=== PATIENT | female | born 1955 | race Caucasian/White ===

== ENCOUNTER → 2016-11-08 | Outpatient (CLI) | payer OTHER ==
[~2016-11-08] MED LIST: IBUP600T44; PRM625
--- NOTE | 2016-11-08 15:01 | MAMMOGRAPHY REPORT ---
BILATERAL DIGITAL SCREENING MAMMOGRAM WITH CAD: 11/08/2016 TECHNIQUE: Current study was also evaluated with a Computer Aided Detection (CAD) system. Bilatera l CC and MLO views were obtained. COMPARISON: Comparison is made to exams dated: 11/08/2015 mammogram, 11/06/2014 mammogram, 11/04/2012 mammogram, 11/02/2011 mammogram, 11/05/2013 mammogram, and 10/31/2010 mammogram - [facility]. BREAST COMPOSITION: The tissue of both breasts is heterogeneously dense, which may obscure small ma sses. FINDINGS: No suspicious masses, calcifications, or areas of architectural distortion are noted in e ither breast. There has been no significant interval change compared to prior exams. IMPRESSION: ACR BI-RADS CATEGORY 1: NEGATIVE There is no mammographic evidence of malignancy. A 1 year screening mammogram is recommended. The p atient will receive written notification of the results. Approximately 10% of breast cancers are not detected with mammography. A negative mammographic repor t should not delay biopsy if a clinically suggestive mass is present. Leann Marsh M.D. ah/:11/08/2016 14:20:59 Catastrophe Claims Supervisor: Divine CLARKE(R)(M), [facility] letter sent: Normal 1/2 BI-RADS Code: ACR BI-RADS Category 1: Negative
== END | disposition home or self-care (01) ==
LOC: C.MAMM 13:11
PROVIDERS: ATTEND Obstetrics & Gynecology
DX: Z12.31 Encounter for screening mammogram for malignant neoplasm of breast (principal)

== ENCOUNTER → 2017-11-09 | Outpatient (CLI) | payer OTHER ==
--- NOTE | 2017-11-12 12:42 | MAMMOGRAPHY REPORT ---
BILATERAL DIGITAL SCREENING MAMMOGRAM TOMOSYNTHESIS WITH CAD: 11/09/2017 TECHNIQUE: Breast tomosynthesis in addition to standard 2D mammography was performed. Current study was also evaluated with a Computer Aided Detection (CAD) system. COMPARISON: Comparison is made to exams dated: 11/08/2016 mammogram, 11/08/2015 mammogram, 11/06/2014 m ammogram, 11/05/2013 mammogram, 11/04/2012 mammogram, and 11/02/2011 mammogram - [facility] enter. BREAST COMPOSITION: The tissue of both breasts is heterogeneously dense, which may obscure small mas ses. FINDINGS: No suspicious masses, calcifications, or areas of architectural distortion are noted in ei ther breast. There has been no significant interval change compared to prior exams. IMPRESSION: ACR BI-RADS CATEGORY 1: NEGATIVE There is no mammographic evidence of malignancy. A 1 year screening mammogram is recommended. The pa tient will receive written notification of the results. Approximately 10% of breast cancers are not detected with mammography. A negative mammographic report should not delay biopsy if a clinically suggestive mass is present. Leann Marsh M.D. /:11/09/2017 15:34:29 Inspector Material Disposition: Danelle CLARKE(Shanna)(M), [facility] letter sent: Normal 1/2 BI-RADS Code: ACR BI-RADS Category 1: Negative
== END | disposition home or self-care (01) ==
LOC: C.MAMM 12:53
PROVIDERS: ATTEND Obstetrics & Gynecology
DX: Z12.31 Encounter for screening mammogram for malignant neoplasm of breast (principal)

== ENCOUNTER 2024-11-18 17:27 | Observation (INO) ==
[2024-11-18 18:24] LABS: Basophils # (auto) 0.15 K/uL (0.00-0.20); Basophils % (auto) 2.3 %; Eosinophils # (auto) 0.08 K/uL (0.00-0.50); Eosinophils % (auto) 1.2 %; Hematocrit (blood only) 39.6 % (37.0-47.0); Hemoglobin 13.1 g/dl (12.0-16.0); Immature Granulocytes # (auto) 0.26 K/uL (0.01-0.20); Immature Granulocytes % (auto) 3.9 %; Lymphocytes # (auto) 1.33 K/uL (1.20-3.40); Mean Corpuscular Hemoglobin 30.9 pg (25.0-34.0); Mean Corpuscular Hgb Conc 33.1 g/dL (32.0-36.0); Mean Corpuscular Volume 93.4 fL (80.0-100.0); Neutrophils # (auto) 4.42 K/uL (1.40-6.50); Neutrophils % (auto) 66.6 %; Platelet Count 197 K/uL (130-400); RDW Coefficient of Variation 12.6 % (11.5-14.5); RDW Standard Deviation 43.5 fL (36.4-46.3); Red Blood Count 4.24 M/uL (4.20-5.40); White Blood Count 6.64 K/ul (4.8-10.8)
[2024-11-18 18:35] LABS: BUN Creatinine Ratio 16.3 (10-20); Calcium 9.4 mg/dl (8.6-10.3); Creatinine Clr Calc Pharmacy 71.9 ml/min; Potassium 3.5 mmol/L (3.5-5.1)
[2024-11-18 18:48] LABS: Troponin I High Sensitivity 69.3 pg/ml (0-14)
[2024-11-18 18:53] LABS: D Dimer 410 ug/L FEU (0-500); INR 0.9 (0.9-1.1); Partial Thromboplastin Ratio 0.9; Partial Thromboplastin Time 24 Seconds (21-31); Prothrombin Time 10.1 Seconds (9.0-12.0)
--- NOTE | 2024-11-18 19:08 | XRay Report ---
Clinical History: Chest pain Technique: A frontal view of the chest was obtained Findings: There are no confluent pulmonary infiltrates. The heart size is within normal limits. No pleural effusion or pneumothorax is seen. There is no definite pulmonary nodule. There are suspected old healed right rib fractures Impression: No active disease Electronically signed by Yasir Buchanan 11-18-2024 7:08 PM
--- NOTE | 2024-11-18 19:37 | Emergency Department Note ---
History of Present Illness General Chief Complaint: Chest Pain Stated Complaint: CHEST PAIN, LIGHTHEADED Time Seen by Provider: 11/18/24 17:34 History of Present Illness Provider Complaint: chest pain Time: 15:00 Duration: now resolved Onset: during exertion (Doing yard work) Pain Location: substernal Pain Radiation: none Severity: mild Maximum Pain Intensity: 2 Current Pain Intensity: 2 Quality: + tightness and + heaviness Relieved By: + rest Exacerbated By: + exertion Context: no recent illness, no recent surgery, no recent immobilization, no recent travel, no trauma/injury, no new medications or no history of DVT/PE Associated symptoms: + dyspnea and + palpitations; no nausea, no vomiting, no diaphoresis, no syncope, no fever, no cough or no leg swelling Related Data On Oral Contraceptives: No Home Medications Medication Instructions Recorded Confirmed Type rosuvastatin 10 mg tablet 10 mg PO HS 11/18/24 11/18/24 History Allergies Allergy/AdvReac Type Severity Reaction Status Date / Time Penicillins Allergy Unknown RASH Verified 11/18/24 19:39 Past Med/Surg History Problem List (Updated 11/18/24 @ 19:37 by Efra Martines MD) Chest pain (Acute) Tinea cruris Surgical menopause Encounter for annual routine gynecological examination Medical History Endometrial polyp Surgical History History of total abdominal hysterectomy and bilateral salpingo-oophorectomy 07/31/2006 S/P dilatation and curettage Family History Denies family history of Ovarian cancer Breast cancer Colorectal cancer Social History Smoking Status: Never smoker Do You Dip or Chew Tobacco: No; Hx Alcohol Use: Yes Alcohol Intake Frequency Comment: Social Drinker Preferred Language: [place] marital status: Feels Safe at Home: Yes Physical Exam Vital Signs Vital Signs - 24 hr 11/18/24 17:29 11/18/24 17:39 11/18/24 17:39 Temperature 36.5 C Temperature Source Temporal Artery Scan Pulse Rate 92 H Pulse Rate [Left Finger] 93 H Pulse Rhythm [Left Finger] Regular Pulse Strength [Left Finger] Normal Respiratory Rate 18 14 Respiratory Effort / Characteristics Non-Labored Spontaneous Non-Labored Respiratory Depth Normal Normal Respiratory Pattern Regular Blood Pressure 151/84 H Blood Pressure [Left Arm] 130/89 Blood Pressure Mean 106 Blood Pressure Mean [Left Arm] 102 Blood Pressure Position Sitting Blood Pressure Position [Left Arm] Lying Pulse Oximetry 97 97 97 Oxygen Delivery Method Room Air Room Air Room Air Sepsis Recent Fever Within 48 Hours No Sepsis New/Unexplained Change in Mental Status No Sepsis Action Taken by Nursing No Action Required 11/18/24 17:57 11/18/24 19:40 Temperature Temperature Source Pulse Rate 91 H Pulse Rate [Left Finger] 75 Pulse Rhythm [Left Finger] Regular Pulse Strength [Left Finger] Normal Respiratory Rate 18 Respiratory Effort / Characteristics Non-Labored Respiratory Depth Normal Respiratory Pattern Regular Blood Pressure Blood Pressure [Left Arm] Blood Pressure Mean Blood Pressure Mean [Left Arm] Blood Pressure Position Blood Pressure Position [Left Arm] Pulse Oximetry 99 Oxygen Delivery Method Room Air Sepsis Recent Fever Within 48 Hours Sepsis New/Unexplained Change in Mental Status Sepsis Action Taken by Nursing Physical Exam GENERAL: oriented to person, place, and time. appears well-developed and well- nourished. HENT: Exam performed. - Head: Normocephalic and atraumatic. EYES: Conjunctivae and EOM are normal. Right eye exhibits no discharge. Left eye exhibits no discharge. No scleral icterus. NECK: Normal range of motion. Neck supple. No JVD present. CV: Normal rate, regular rhythm, normal heart sounds and intact distal pulses. There is no peripheral edema. Palpable radial pulses bue. PULM/CHEST: Effort normal and breath sounds normal. No respiratory distress. No stridor. no wheezes. no rales. ABD: The abdomen is soft. There is no tenderness. NEURO: Motor and sensation grossly intact. SKIN: Skin is warm and dry. He is not diaphoretic. PSYCH: normal mood and affect. Behavior is normal. Judgment and thought content normal. Course Course 1733: The patient was evaluated in room A12. A complete history and physical exam was performed Cardiac monitoring: An order was placed for continuous cardiac monitoring. The monitor shows a rate of 90 with sinus rhythm interpreted by me 1920: Vital signs stable. Labs and imaging are unremarkable with the exception of an elevated high-sensitivity troponin of 69.3. Patient not reporting any chest pain currently. Message cardiology on-call Dr. Mckoy and asked about heparin and he stated if we felt it was necessary he would be okay with that. Discussed the case with admitting team Dr. Rodríguez and he states he will trend the patient's troponin and then determine if he will start heparin on the patient. Administered Medications Discontinued Medications Aspirin (Aspirin 81 Mg Chew) 324 mg PO NOW STA Stop: 11/18/24 19:22 Last Admin: 11/18/24 19:44 Dose: 324 mg Documented By: SONIA Medical Decision Making Laboratory Data Attestation: I reviewed the patient's lab results. 11/18/24 17:43 11/18/24 17:43 Labs: Lab Results 11/18/24 11/18/24 Range/Units 17:43 19:28 WBC 6.64 (4.8-10.8) K/ul RBC 4.24 (4.20-5.40) M/uL Hgb 13.1 (12.0-16.0) g/dl Hct 39.6 (37.0-47.0) % MCV 93.4 (80.0-100.0) fL MCH 30.9 (25.0-34.0) pg MCHC 33.1 (32.0-36.0) g/dL RDW Std Deviation 43.5 (36.4-46.3) fL RDW Coeff of Darron 12.6 (11.5-14.5) % Plt Count 197 (130-400) K/uL MPV 10.0 (9.4-12.4) fL Immature Gran % (Auto) 3.9 % Neut % (Auto) 66.6 % Lymph % (Auto) 20.0 % [place] % (Auto) 6.0 % Eos % (Auto) 1.2 % Baso % (Auto) 2.3 % Neut # (Auto) 4.42 (1.40-6.50) K/uL Lymph # (Auto) 1.33 (1.20-3.40) K/uL [place] # (Auto) 0.40 (0.11-0.59) K/uL Eos # (Auto) 0.08 (0.00-0.50) K/uL Baso # (Auto) 0.15 (0.00-0.20) K/uL Immature Gran # (Auto) 0.26 H (0.01-0.20) K/uL PT 10.1 (9.0-12.0) Seconds INR 0.9 (0.9-1.1) APTT 24 (21-31) Seconds PTT Ratio 0.9 D-Dimer 410 (0-500) ug/L FEU Sodium 142 (136-145) mmol/L Potassium 3.5 (3.5-5.1) mmol/L Chloride 107 (98-107) mmol/L Carbon Dioxide 28 (21-32) mmol/L Anion Gap 7 (3-11) BUN 14 (6-23) mg/dl Creatinine 0.86 (0.6-1.2) mg/dl Est Cr Clr Drug Dosing 71.9 ml/min eGFR 73.54 BUN/Creatinine Ratio 16.3 (10-20) Glucose 102 H (70-99(Fasting)) mg/dl Calcium 9.4 (8.6-10.3) mg/dl Troponin I High Sens 69.3 H* 238.0 H* D (0-14) pg/ml Lipase 43 (11-82) U/L Imaging Data Chest x-ray: Attestation: I personally reviewed and interpreted this imaging study as follows: My impression: Chest x-ray negative. Airway clear. No pneumothorax. No consolidation. No cardiomegaly or cephalization.. No free air under the diaphragm. No fractures of the skeletal structures. Radiologist's impression: Chest X-Ray 11/18/24 17:34 Clinical History: Chest pain Technique: A frontal view of the chest was obtained Findings: There are no confluent pulmonary infiltrates. The heart size is within normal limits. No pleural effusion or pneumothorax is seen. There is no definite pulmonary nodule. There are suspected old healed right rib fractures Impression: No active disease Electronically signed by Yasir Buchanan 11-18-2024 7:08 PM ECG Data Attestation: I personally reviewed and interpreted this ECG as follows: Rate (beats per minute): 94 Rhythm: normal sinus Findings: no ST depression, no ST elevation or no prolonged QT Additional Comments: QRS 78 MDM Narrative 1734: The patient was evaluated in room A12. A complete history and physical exam was performed Cardiac monitoring: An order was placed for continuous cardiac monitoring. The monitor shows a rate of 90 with sinus rhythm interpreted by me 1920: Vital signs stable. Labs and imaging are unremarkable with the exception of an elevated high-sensitivity troponin of 69.3. Patient not reporting any chest pain currently. Message cardiology on-call Dr. Mckoy and asked about heparin and he stated if we felt it was necessary he would be okay with that. Discussed the case with admitting team Dr. Rodríguez and he states he will trend the patient's troponin and then determine if he will start heparin on the patient. Impression & Plan Chest pain Discharge Plan Visit Data Chief Complaint: Chest Pain Stated Complaint: CHEST PAIN, LIGHTHEADED ED Provider: Efra Martines Discharge Problem: Chest pain Patient Disposition: Being Evaluated by Hospitalist Forms Stand Alone Forms: My [facility] Prescriptions Prescriptions: No Action rosuvastatin 10 mg tablet 10 mg PO HS Referrals Referrals: Batool Olvera CRNP [Primary Care Provider] -
[2024-11-18] MEDS: ASPIRIN 81 MG CHEW PO STA (19:44)
--- NOTE | 2024-11-18 20:17 | History & Physical Report ---
Date of Service November 18, 2024 Assessment & Plan (1) Chest pain: Plan: 69-year-old female with past med history significant for hyperlipidemia comes with chest pain. Patient was working in the yard today when suddenly felt dizzy, chest pain and palpitations and was also short of breath. She was not feeling well. The chest pain lasted about 30 to 40 minutes. Currently has some mild soreness in the chest. Palpitations and shortness of breath currently reso lved. During episode she also had a headache which is resolved. Had some chest discomfort in the past but not thought much about it. Denies any blurred vision. Has some runny nose and sore throat from allergies. Has occasional cough. Appetite is okay. No nausea. No abdominal pain. Normal bowel and bladder movements. Denies blood in stools or black stools. Denies hematuria. No rash. Currently resting comfortably and hemodynamically stable. Chest pain Non-ST elevated [place] Presented with chest pain while working in the yard Currently has some soreness in the chest EKG no acute findings Initial troponin Initial troponin 69 and repeat is 238 Started on IV heparin Aspirin given Continue home Crestor N.p.o. Follow serial cardiac enzymes and echo Follow lipid profile Telemetry Cardiac consult in a.m. for further recommendations Close monitor History of hyperlipidemia On statin DVT prophylaxis IV heparin Disposition Telemetry Full code. History of Present Illness Chief Complaint: Chest pain Primary Care Provider: Batool Olvera CRNP 69-year-old female with past med history significant for hyperlipidemia comes with chest pain. Patient was working in the yard today when suddenly felt dizzy, chest pain and palpitations and was also short of breath. She was not feeling well. The chest pain lasted about 30 to 40 minutes. Currently has some mild soreness in the chest. Palpitations and shortness of breath currently resolved. During episode she also had a headache which is resolved. Had some chest discomfort in the past but not thought much about it. Denies any blurred vision. Has some runny nose and sore throat from allergies. Has occasional cough. Appetite is okay. No nausea. No abdominal pain. Normal bowel and bladder movements. Denies blood in stools or black stools. Denies hematuria. No rash. Currently resting comfortably and hemodynamically stable. Past medical history. As mentioned above Past surgical history. Hysterectomy Social history. No smoking. No alcohol use. Family history. Mother had diabetes. Father hypertension. Liver cirrhosis. And heart disease. Allergies Allergy/AdvReac Type Severity Reaction Status Date / Time Penicillins Allergy Unknown RASH Verified 11/18/24 19:39 Home Medications Medication Instructions Recorded Confirmed Type rosuvastatin 10 mg tablet 10 mg PO HS 11/18/24 11/18/24 History Past Med/Surg History Problem List (Updated 11/18/24 @ 19:37 by Efra Martines MD) Chest pain (Acute) Tinea cruris Surgical menopause Encounter for annual routine gynecological examination Medical History Endometrial polyp Surgical History History of total abdominal hysterectomy and bilateral salpingo-oophorectomy 07/31/2006 S/P dilatation and curettage Family History Denies family history of Ovarian cancer Breast cancer Colorectal cancer Social History Smoking Status: Never smoker Do You Dip or Chew Tobacco: No; Hx Alcohol Use: Yes Alcohol Intake Frequency Comment: Social Drinker Hx Substance Use: No Preferred Language: [place] Communication Ability: Effective Beliefs That Will Affect Care: None marital status: Current Living Situation: Spouse Feels Safe at Home: Yes Review of Systems Review of Systems: All systems reviewed & are unremarkable except as noted in HPI & below Physical Exam Physical Exam: General- Not in distress. Head- atraumatic Eyes- PERRL ENT- oropharynx clear Neck- supple, no JVD. Lungs- clear to auscultation no wheezing or crackles Heart- regular rate and rhythm; no murmur, no gallop. Abdomen- normal bowel sounds, soft, nontender, no distension Extremities- no pretibial edema, no erythema seen Neuro- alert, oriented PERRL, no facial palsy; no dysarthria; moves ext remities Results & Data Results & Data Vital Signs (Past 12 Hours) Vital Signs Temp Pulse Pulse Resp BP BP Pulse Ox 11/18/24 19:40 75 18 99 11/18/24 17:57 91 H 11/18/24 17:39 97 11/18/24 17:39 93 H 14 130/89 97 11/18/24 17:29 36.5 C 92 H 18 151/84 H 97 O2 Del Method 11/18/24 19:40 Room Air 11/18/24 17:57 11/18/24 17:39 Room Air 11/18/24 17:39 Room Air 11/18/24 17:29 Room Air Diagnostic Findings Laboratory Results WBC 6.64 K/ul (4.8-10.8) 11/18/24 17:43 RBC 4.24 M/uL (4.20-5.40) 11/18/24 17:43 Hgb 13.1 g/dl (12.0-16.0) 11/18/24 17:43 Hct 39.6 % (37.0-47.0) 11/18/24 17:43 MCV 93.4 fL (80.0-100.0) 11/18/24 17:43 MCH 30.9 pg (25.0-34.0) 11/18/24 17:43 MCHC 33.1 g/dL (32.0-36.0) 11/18/24 17:43 RDW Std Deviation 43.5 fL (36.4-46.3) 11/18/24 17:43 RDW Coeff of Adrron 12.6 % (11.5-14.5) 11/18/24 17:43 Plt Count 197 K/uL (130-400) 11/18/24 17:43 MPV 10.0 fL (9.4-12.4) 11/18/24 17:43 Immature Gran % (Auto) 3.9 % 11/18/24 17:43 Neut % (Auto) 66.6 % 11/18/24 17:43 Lymph % (Auto) 20.0 % 11/18/24 17:43 [place] % (Auto) 6.0 % 11/18/24 17:43 Eos % (Auto) 1.2 % 11/18/24 17:43 Baso % (Auto) 2.3 % 11/18/24 17:43 Neut # (Auto) 4.42 K/uL (1.40-6.50) 11/18/24 17:43 Lymph # (Auto) 1.33 K/uL (1.20-3.40) 11/18/24 17:43 [place] # (Auto) 0.40 K/uL (0.11-0.59) 11/18/24 17:43 Eos # (Auto) 0.08 K/uL (0.00-0.50) 11/18/24 17:43 Baso # (Auto) 0.15 K/uL (0.00-0.20) 11/18/24 17:43 Immature Gran # (Auto) 0.26 K/uL (0.01-0.20) H 11/18/24 17:43 PT 10.1 Seconds (9.0-12.0) 11/18/24 17:43 INR 0.9 (0.9-1.1) 11/18/24 17:43 APTT 24 Seconds (21-31) 11/18/24 17:43 PTT Ratio 0.9 11/18/24 17:43 D-Dimer 410 ug/L FEU (0-500) 11/18/24 17:43 Sodium 142 mmol/L (136-145) 11/18/24 17:43 Potassium 3.5 mmol/L (3.5-5.1) 11/18/24 17:43 Chloride 107 mmol/L (98-107) 11/18/24 17:43 Carbon Dioxide 28 mmol/L (21-32) 11/18/24 17:43 Anion Gap 7 (3-11) 11/18/24 17:43 BUN 14 mg/dl (6-23) 11/18/24 17:43 Creatinine 0.86 mg/dl (0.6-1.2) 11/18/24 17:43 Est Cr Clr Drug Dosing 71.9 ml/min 11/18/24 17:43 eGFR 73.54 11/18/24 17:43 BUN/Creatinine Ratio 16.3 (10-20) 11/18/24 17:43 Glucose 102 mg/dl (70-99(Fasting)) H 11/18/24 17:43 Calcium 9.4 mg/dl (8.6-10.3) 11/18/24 17:43 Troponin I High Sens 69.3 pg/ml (0-14) H* 11/18/24 17:43 Lipase 43 U/L (11-82) 11/18/24 17:43 Impressions Chest X-Ray 11/18/24 17:34 Clinical History: Chest pain Technique: A frontal view of the chest was obtained Findings: There are no confluent pulmonary infiltrates. The heart size is within normal limits. No pleural effusion or pneumothorax is seen. There is no definite pulmonary nodule. There are suspected old healed right rib fractures Impression: No active disease Electronically signed by Yasir Buchanan 11-18-2024 7:08 PM ECG Additional Comments: ECG. Normal sinus rhythm rate of 94. No acute ST changes seen. Code Status & VTE Plan VTE Prophylaxis Plan VTE Prophylaxis will be ordered: Yes
[2024-11-18] MEDS: HEPARIN SOD (PORCINE) 1000 UNIT/ML IV ONE (20:58)
[2024-11-18] MEDS: HEPARIN 25000 UNIT/500 ML D5W 25,000 UNITS/500 ML BAG IV SCH (20:59)
[2024-11-18] MEDS: Heparin IV Adult Wt-Based Standard w/ INITIAL Bolus Protocol IV SCH (21:05)
[2024-11-18 21:26] LABS: ANTI-Xa, UFH(UnfractionatedHep < 0.10 IU/ml (0.3-0.7)
[2024-11-18] MEDS ORDERED: POLYETHYLENE (MIRALAX) 17 GM PACK PO PRN (22:49)
[2024-11-18] MEDS ORDERED: ACETAMINOPHEN 325 MG TAB PO PRN (22:49)
[2024-11-18] MEDS ORDERED: NITROGLYCERIN SL 0.4 MG/TAB TAB SL PRN (22:49)
[2024-11-18] MEDS: ROSUVASTATIN CALCIUM 10 MG TAB PO SCH (23:12)
[2024-11-19 03:21] VITALS: TEMP 97.9
[2024-11-19 03:34] LABS: BUN Creatinine Ratio 17.8 (10-20); Calcium 8.7 mg/dl (8.6-10.3); Chol HDL Ratio 3.3 (0-5); Creatinine Clr Calc Pharmacy 84.7 ml/min; Magnesium 2.1 mg/dl (1.7-2.4); Potassium 3.5 mmol/L (3.5-5.1)
[2024-11-19 03:46] LABS: Basophils # (auto) 0.08 K/uL (0.00-0.20); Basophils % (auto) 1.5 %; Eosinophils # (auto) 0.12 K/uL (0.00-0.50); Eosinophils % (auto) 2.3 %; Hematocrit (blood only) 35.1 % (37.0-47.0); Hemoglobin 11.7 g/dl (12.0-16.0); Immature Granulocytes # (auto) 0.14 K/uL (0.01-0.20); Immature Granulocytes % (auto) 2.6 %; Lymphocytes # (auto) 2.11 K/uL (1.20-3.40); Lymphocytes % (auto) 39.7 %; Mean Corpuscular Hemoglobin 31.2 pg (25.0-34.0); Mean Corpuscular Hgb Conc 33.3 g/dL (32.0-36.0); Mean Corpuscular Volume 93.6 fL (80.0-100.0); Mean Platelet Volume 10.1 fL (9.4-12.4); Monocytes # (auto) 0.43 K/uL (0.11-0.59); Monocytes % (auto) 8.1 %; Neutrophils # (auto) 2.44 K/uL (1.40-6.50); Neutrophils % (auto) 45.8 %; Platelet Count 179 K/uL (130-400); RDW Coefficient of Variation 12.7 % (11.5-14.5); RDW Standard Deviation 43.5 fL (36.4-46.3); Red Blood Count 3.75 M/uL (4.20-5.40); White Blood Count 5.32 K/ul (4.8-10.8)
[2024-11-19 04:00] LABS: ANTI-Xa, UFH(UnfractionatedHep 1.05 IU/ml (0.3-0.7)
[2024-11-19 04:01] LABS: Troponin I High Sensitivity 320.9 pg/ml (0-14)
--- NOTE | 2024-11-19 08:34 | Electrocardiogram Report ---
Test Reason : Blood Pressure : */* mmHG Vent. Rate : 94 BPM Atrial Rate : 94 BPM P-R Int : 166 ms QRS Dur : 78 ms QT Int : 350 ms P-R-T Axes : 77 24 56 degrees QTcB Int : 437 ms Normal sinus rhythm Normal ECG When compared with ECG of 25-Jul-2006 11:28, No significant change Confirmed by Sherman Mathew ([id number]) on 11/19/2024 8:34:24 AM Referred By: REFERRED SELF Confirmed By: Sherman Mathew
[2024-11-19] MEDS: ASPIRIN 81 MG ECTAB PO SCH (08:59)
--- OUTSIDE RECORDS SUMMARY | 2024-11-19 09:13 | External Medical Summary | Continuity of Care Document ---
Author Name Unknown Organization [facility] Address [address] [place] [address] Phone [phone] Care Team Providers Care Maintenance Mechanic Supervisor Name Role Phone Mony Ott MD Care Team Information Receive r [phone] Social History Type Date Description Comments Sex Unknown Tobacco Use Reviewed: 05/06/24 Never Smoked Cigarette s Smoking Status Reviewed: 05/06/24 Never Smoked Cigaret funmi Tobacco Use Reviewed: 09/13/23 Never Smoked Cigars Tobacco Use Reviewed: 09/13/23 Never Smoked A Pipe Smokeless Tobacco 09/13/2023 Never Used Smokeless To bacco ETOH Use Rarely consumes beer Recreational Drug Use Denies Drug Use Allergies and adverse reactions Active Allergies Criticality Reaction | Severity Comments Date Penicillins Unable to assess criticality 06/27/2021 Medications Active Medications SIG Qnty Indications Order ing Provider Date [id number] Capsules DR Take One Tab By Mouth Daily In The Morning Half An Hour Before Breakfast 90caps Mony Ott MD 09/20/2023 [id number] Capsules take one capsule two times a day for constipation 60caps K59.00 Mony Ott MD 10/02/2022 [id number]/Scoop Powder take one scoop as directed daily as needed 119gm K59.00 Mony Ott MD 10/02/2022 Immunizations CPT Code Status Date Vaccine Lot # [id number] Refused 05/03/2023 Influenza Virus Vaccine, Quadrivalent (Cciiv4), Derived From Cell [id number] Refused 05/03/2023 Pneumococcal Conjugate-Pr evnar 20 [id number] Refused 03/27/2022 Influenza Vaccine-Adminis tered at another facility 27786 Refused 03/27/2022 Moderna Sars-Co v-2 (Cov-19) vacc,100 mcg/ 0.5 mL 12Y+EMR Doc Only [id number] Refused 03/27/2022 Shingrix 19759 Refused 03/27/2022 Pneumococcal Conjugate-Pr evnar 13 [id number] Refused 06/27/2021 Influenza Vaccine High Do se 0.5ML Age 65 & > Vital Signs Date Vital Result Comment 05/06/2024 8:53am BP Systolic 130 mmHg BP Diastolic 82 mmHg Body Temperature 96.8 F Heart Rate 65 /min Respiratory Rate 16 /min Weight 188.38 lb Weight 85.447 kg Height 67.75 inches 5'7.75" with carmelina es BMI (Body Mass Index) 28.9 kg/m2 O2 % BldC Oximetry 98 % [place] Body Weight 135 lb 02/07/2024 8:34am BP Systolic 124 mmHg BP Diastolic 84 mmHg Body Temperature 97.7 F Heart Rate 65 /min Respiratory Rate 16 /min Weight 186.00 lb Weight 84.370 kg Height 67.75 inches 5'7.75" with carmelina es BMI (Body Mass Index) 28.5 kg/m2 O2 % BldC Oximetry 98 % [place] Body Weight 135 lb Results Test Acquired Date Facility Test Result H/L Range Note Xray 02/11/2024 [facility] Ultrasound Abdomen Limited [id number] Hepatitis Panel, Acute W/Refl To Confirm 02/07/[address] [facility] [place] [address] Hepatitis A Igm NON-REACTI VE Normal Non-Reacti ve 1 Hepatitis B Surface Antigen NON-REACTI VE Normal Non-Reacti ve 2 Confirmation DNR Normal Hepatitis B Core Antibody (Igm) NON-REACTI VE Normal Non-Reacti ve 3 Hepatitis C Antibody NON-REACTI VE Normal Non-Reacti ve 4 Laboratory test finding 02/07/[address] [facility] [place] [address] [phone] Enhanced PDF Report [id number] SEE IMAGE Hepatic 01/31/2024 [facility] [address] [place] [id number] [phone] Alk Phos 80 IU/L 43-122 Alt(SGPT) 13 IU/L 10-40 Ast(Sgot) 17 IU/L 3-42 T.Bilirubin 1.4 mg/dL High 0.1-1.3 D.Bilirubin 0.2 mg/dL 0.0-0.3 Tot.Protein 6.6 g/dL 5.8-8.0 Albumin 4.4 g/dL 3.0-5.2 Lipid 01/31/2024 [facility]. 1 [place], [place] [id number] [phone] Cholesterol 231 mg/dL High 0-200 5 Triglyceride 158 mg/dL High 0-150 6 HDLD 38 mg/dL See Comment 7 Measured LDL 172 mg/dL High 0-130 8 Calc VLDL 31.6 mg/dL See Comment 9 Chol/HDL 6.1 RATIO See Comment 10 Non-HDL 193 mg/dL See Comment 11 1 For additional infor adiel, please refer to http://Quick TV.Baiyaxuan/faq/STQ018 (This link is being provided for informational/ educational purposes only.) 2 For additional infor matyvonne, please refer to http://Quick TV.Baiyaxuan/faq/UPJ964 (This link is being provided for informational/ educational purposes only.) 3 For additional infor Triples Mediaion, please refer to http://Quick TV.Baiyaxuan/faq/FRG657 (This link is being provided for informational/ educational purposes only.) 4 HCV antibody was non -reactive. There is no laboratory evidence of HCV infection. In most cases, no further action is required. However, if recent HCV exposure is suspected, a test for HCV RNA (test code 55034) is suggested. For additional information please refer to http://Quick TV.Baiyaxuan/faq/YFA73w6 (This link is being provided for informational/ educational purposes only.) 5 CHOLESTEROL Less than 200mg/dl Low risk 201-239 mg/dl Borderline risk Equal to or greater 240mg/dl High risk 6 TRIGLYCERIDES Less than 150mg/dl Normal 150-199mg/dl Borderline 200-499mg/dl High Greater than 500mg/dl Very High 7 HDL <40mg/dl Elevated Risk 41-59mg/dl Risk >=60mg/dl Least Risk 8 LDL <100mg/dl Optimal 100-129mg/dl Near Optimal 130-159mg/dl Borderline High 160-189mg/dl High >=190 Very High 9 VLDL Less than 30mg/dl Normal 10 CHOL/HDL <4.0 Optimal 4.0-5.0 Borderline >6.0 High Risk 11 NON-HDL 30mg/dl higher than LDL Target Procedures Date Code Description Status 05/06/2024 G2211 Continuation of care e/m vis it add on Completed 02/07/2024 G9920 Scrning Perf And Negative Co mpleted 02/07/2024 08762 Venipuncture Routine Complet ed 01/31/2024 91013 Venipuncture Routine Complet ed 01/08/2024 [id number] Mammogram Completed 11/23/2022 [id number] Colonoscopy Completed Medical Devices Description No Information Available Encounters Type Date Location Provider Dx Diagnosis Office Visit 05/06/2024 9:00a Austin Ott MD R74.8 Abnormal levels of other serum enzymes E78.5 Hyperlipidemia, unsp ecified K21.9 Gastro-esophageal re flux disease without esophagitis R10.32 Left lower quadrant pain Office Visit 02/07/2024 8:30a Austin Ott MD R74.8 Abnormal levels of other serum enzymes R10.12 Left upper quadrant pain E78.5 Hyperlipidemia, unsp ecified K21.9 Gastro-esophageal re flux disease without esophagitis K59.00 Constipation, unspec ified Assessments Date Code Description Provider 05/06/2024 R74.8 Abnormal levels of other ser um enzymes Mony Ott MD 05/06/2024 E78.5 Hyperlipidemia, unspecified Mony Ott MD 05/06/2024 K21.9 Gastro-esophagea l reflux disease without esophagitis Mony Ott MD 05/06/2024 R10.32 Left lower quadrant pain Denis Ott MD 02/07/2024 R74.8 Abnormal levels of other ser um enzymes Mony Ott MD 02/07/2024 R10.12 Left upper quadrant pain Denis Ott MD 02/07/2024 E78.5 Hyperlipidemia, unspecified Mony Ott MD 02/07/2024 K21.9 Gastro-esophagea l reflux disease without esophagitis Mony Ott MD 02/07/2024 K59.00 Constipation, unspecified Kathie Ott MD 01/31/2024 R74.8 Abnormal levels of other ser um enzymes Mony Ott MD 01/31/2024 R74.8 Abnormal levels of other ser um enzymes Lab - [facility] Plan of Treatment Future Appointment(s):* 10/28/2024 8:00 am - Lab - [facility] * 11/04/2024 9:00 am - Mony Ott MD at [facility] 05/06/2024 - Mony Ott MD* R74.8 Abnormal levels of other serum enzymes* Comments:* Last lab showing improvement in bilirubin level will continue to monitor drink plenty of fluid * Follow up:* f/up in 6 months with fasting labs a week prior to visit * E78.5 Hyperlipidemia, unspecified* New Labs:* CBC W/Diff, Scheduled: 10/28/24 * Comp. Met, Scheduled: 10/28/24 * Lipid, Scheduled: 10/28/24 * Comments:* continue to follow low fat diet and exercise as tolerated labs ordered * K21.9 Gastro-esophageal reflux disease without esophagitis* Comments:* Stable Continue current medication * Follow up:* * R10.32 Left lower quadrant pain* Comments:* Resolved Functional Status Description No Information Available Mental Status Description No Information Available Referrals Description No Information Available
--- NOTE | 2024-11-19 09:49 | Electrocardiogram Report ---
Test Reason : Blood Pressure : */* mmHG Vent. Rate : 59 BPM Atrial Rate : 59 BPM P-R Int : 158 ms QRS Dur : 76 ms QT Int : 452 ms P-R-T Axes : 29 -2 30 degrees QTcB Int : 447 ms Sinus bradycardia Otherwise normal ECG When compared with ECG of 18-Nov-2024 17:37, Vent. rate has decreased by 35 bpm Confirmed by Sherman Mathew ([id number]) on 11/19/2024 9:49:12 AM Referred By: REFERRED SELF Confirmed By: Sherman Mathew
--- NOTE | 2024-11-19 10:06 | Cardiology Consultation ---
Date of Consultation November 19, 2024 Assessment & Plan (1) Non-ST elevation (NSTEMI) myocardial infarction: (2) Dyslipidemia, goal LDL below 70: (3) Palpitation: (4) Unifocal PVCs: Plan 69-year-old female presenting with chest pain, palpitations, elevated troponin suggestive of NSTEMI. Preliminary review of echocardiogram demonstrates preserved LV systolic function. Currently pain-free. Recommend further evaluation with cardiac catheterization. Risk, benefits, alternatives to procedure discussed. Patient agreeable to proceed. If there is no evidence of significant obstructive CAD, recommend outpatient 14-day ZIO for further evaluation of tachycardia/palpitations. Add low-dose beta-elisa, Toprol-XL 25 mg daily. Continue IV heparin, aspirin, and statin therapy. I spent a total of 60 minutes on the date of service in preparation, delivery, and documentation of the care provided to this patient, excluding any time spent in the performance of separately billed services. Prakash Mckoy DO, [facility] History of Present Illness Reason for Consultation: NSTEMI Requesting Physician: Dr. Rodríguez Attending Physician: Salbador Moreno MD History of Present Illness 69-year-old female present to the emergency department due to chest discomfort and palpitations. She was performing yard work in the afternoon when she abruptly felt lightheaded with a sensation of heart pounding and chest heaviness. Discomfort and palpitation lasted more than 20 minutes. Lightheadedness without overt syncope noted. Symptoms gradually improved however persistent chest discomfort noted upon arrival to the ER. Sinus rhythm without significant ST changes noted at that time. Serum troponin elevated. Currently pain-free. Treated with IV heparin overnight. Denies prior history of coronary disease, congestive heart failure, rheumatic fever as a child, or diabetes. present at bedside. Offers no additional concerns/complaints. Allergies Allergy/AdvReac Type Severity Reaction Status Date / Time Penicillins Allergy Unknown RASH Verified 11/18/24 19:39 Home Medications Medication Instructions Recorded Confirmed Type rosuvastatin 10 mg tablet 10 mg PO HS 11/18/24 11/18/24 History Patient History Medical History Endometrial polyp Surgical History History of total abdominal hysterectomy and bilateral salpingo-oophorectomy 07/31/2006 S/P dilatation and curettage Family History Denies family history of Ovarian cancer Breast cancer Colorectal cancer Social History Smoking Status: Never smoker Do You Dip or Chew Tobacco: No; Hx Alcohol Use: Yes Alcohol Intake Frequency Comment: Social Drinker Hx Substance Use: No Preferred Language: Swedish Communication Ability: Effective Beliefs That Will Affect Care: None marital status: Current Living Situation: Spouse Feels Safe at Home: Yes Review of Systems Review of Systems: All systems reviewed & are unremarkable except as noted in Subjective Physical Exam Constitutional: well nourished; no acute distress Respiratory: no respiratory distress, no labored breathing and no retractions Auscultation: no crackles, no rales, no rhonchi and no wheezes Cardiovascular: Rate/Rhythm: regular rate and regular rhythm Heart Sounds: normal S1 and normal S2; no murmur Vessels: femoral pulses present and radial pulses present; no JVD and no carotid bruit Extremities: no edema Gastrointestinal (Abdomen): Inspection/Auscultation: abdomen normal to inspection and normal bowel sounds; abdomen not distended Percussion/Palpation: abdomen soft; abdomen nontender, no guarding and abdomen not rigid Neurologic: CN's II-XI intact bilaterally and moves all extremities; no focal motor deficits Results & Data Vital Signs (Past 12 Hours) Vital Signs Temp Pulse Resp BP Pulse Ox Pulse Ox O2 Del Method 11/19/24 07:55 36.6 C 59 L 18 114/74 95 Room Air 11/19/24 03:20 36.6 C 58 L 20 119/69 96 Room Air 11/18/24 22:50 36.5 C 68 16 121/76 95 Room Air 11/18/24 22:49 36.5 C 68 16 121/76 95 Room Air 11/18/24 22:49 95 O2 Del Method 11/19/24 07:55 11/19/24 03:20 11/18/24 22:50 11/18/24 22:49 11/18/24 22:49 Room Air Laboratory Results Cardiac Enzymes 11/18/24 11/18/24 11/19/24 Range/Units 17:43 19:28 02:57 Troponin I High Sens 69.3 H* 238.0 H* D 320.9 H* D (0-14) pg/ml Coagulation 11/18/24 Range/Units 17:43 PT 10.1 (9.0-12.0) Seconds APTT 24 (21-31) Seconds Lipids 11/19/24 Range/Units 02:57 Triglycerides 125 (0-150) mg/dl Cholesterol 125 (0-200) mg/dl HDL Cholesterol 38 mg/dl Cholesterol/HDL Ratio 3.3 (0-5) CBC 11/18/24 11/19/24 Range/Units 17:43 02:57 WBC 6.64 5.32 (4.8-10.8) K/ul RBC 4.24 3.75 L (4.20-5.40) M/uL Hgb 13.1 11.7 L (12.0-16.0) g/dl Hct 39.6 35.1 L (37.0-47.0) % Plt Count 197 179 (130-400) K/uL Neut # (Auto) 4.42 2.44 (1.40-6.50) K/uL Lymph # (Auto) 1.33 2.11 (1.20-3.40) K/uL [place] # (Auto) 0.40 0.43 (0.11-0.59) K/uL Eos # (Auto) 0.08 0.12 (0.00-0.50) K/uL Baso # (Auto) 0.15 0.08 (0.00-0.20) K/uL Comprehensive Metabolic Panel 11/18/24 11/19/24 Range/Units 17:43 02:57 Sodium 142 141 (136-145) mmol/L Potassium 3.5 3.5 (3.5-5.1) mmol/L Chloride 107 108 H (98-107) mmol/L Carbon Dioxide 28 27 (21-32) mmol/L BUN 14 13 (6-23) mg/dl Creatinine 0.86 0.73 (0.6-1.2) mg/dl Glucose 102 H 107 H (70-99(Fasting)) mg/dl Calcium 9.4 8.7 (8.6-10.3) mg/dl Intake and Output 11/18/24 11/19/2425 22:59 06:59 14:59 Intake Total 183.733 / 183.733 Balance 183.733 / 183.733 Intake: IV 183.733 / 183.733 Heparin 43343 Unit/500 ml D5w 183.733 / 183.733 25,000 units In 500 ml @ 0 UNITS/HR IV .Q0M [facility] Rx#: [id number] Other: Other Intake Source Patient is NPO Weight 86 kg 85.5 kg Weight Measurement Method Built in [facility] Built in [facility] Diagnostic Findings Preliminary review of bedside 2D transthoracic echocardiogram demonstrates preserved LV systolic function,normal wall motion, no significant valvular pathology.
--- NOTE | 2024-11-19 11:22 | Pre Anesthesia Assessment ---
Date of Service November 19, 2024 Pre Sedation Assessment Vital Signs Temp Pulse Pulse Resp BP BP Pulse Ox 11/19/24 10:54 36.6 C 61 18 125/63 96 11/19/24 07:55 36.6 C 59 L 18 114/74 95 11/19/24 03:20 36.6 C 58 L 20 119/69 96 11/18/24 22:50 36.5 C 68 16 121/76 95 11/18/24 22:49 36.5 C 68 16 121/76 95 11/18/24 22:49 11/18/24 21:28 36.7 C 11/18/24 21:01 65 22 139/86 97 11/18/24 19:40 75 18 99 11/18/24 17:57 91 H 11/18/24 17:39 97 11/18/24 17:39 93 H 14 130/89 97 11/18/24 17:29 36.5 C 92 H 18 151/84 H 97 Pulse Ox O2 Del Method O2 Del Method 11/19/24 10:54 Room Air 11/19/24 07:55 Room Air 11/19/24 03:20 Room Air 11/18/24 22:50 Room Air 11/18/24 22:49 Room Air 11/18/24 22:49 95 Room Air 11/18/24 21:28 11/18/24 21:01 Room Air 11/18/24 19:40 Room Air 11/18/24 17:57 11/18/24 17:39 Room Air 11/18/24 17:39 Room Air 11/18/24 17:29 Room Air Cardiovascular + S1 normal and + S2 normal; no murmur + PMI normal + femoral pulses present and + radial pulses present; no JVD and no carotid bruit no edema Respiratory + respiratory effort normal; no respiratory distress, no labored breathing and no retractions no crackles, no rales, no rhonchi and no wheezes Pre-Sedation Airway Assessment Smoking Status: Never smoker Hx Sleep Apnea: No Short, Thick Neck: No Thyromental Distance: > or= 3.5 Finger Breadths Oral Cavity: + WNL Mallampati Class: III ASA: ASA3 NPO Status Date of Last Intake of Fluids: 11/19/24 Time of Last Intake of Fluids: 05:00 Date of Last Intake of Solid Food: 11/18/24 Time of Last Intake of Solid Foods: 21:00 Procedure Planning Contraindications for Sedation: none Current Medications Reviewed: Yes Notes The planned sedation has been discussed with the patient. Informed Consent was obtained. I have identified the patient, determined the appropriateness of sedation and have assessed the patient immediately prior to the procedure. All medicine(s) and interventions are by my order.
--- NOTE | 2024-11-19 12:04 | Hospitalist Progress Note ---
Date of Service November 19, 2024 Assessment & Plan (1) Chest pain: Plan: per previous hospitalist notes with addendum: 69-year-old female with past med history significant for hyperlipidemia comes with chest pain. Patient was working in the yard today when suddenly felt dizzy, chest pain and palpitations and was also short of breath. She was not feeling well. The chest pain lasted about 30 to 40 minutes. Currently has some mild soreness in the chest. Palpitations and shortness of breath currently resolved. During episode she also had a headache which is resolved. Had some chest discomfort in the past but not thought much about it. Denies any blurred vision. Has some runny nose and sore throat from allergies. Has occasional cough. Appetite is okay. No nausea. No abdominal pain. Normal bowel and bladder movements. Denies blood in stools or black stools. Denies hematuria. No rash. Currently resting comfortably and hemodynamically stable. Chest pain Non-ST elevated VT Presented with chest pain while working in the yard Currently has some soreness in the chest EKG no acute findings Initial troponin Initial troponin 69 and repeat is 238 Started on IV heparin Aspirin given Continue home Crestor N.p.o. Follow serial cardiac enzymes and echo Follow lipid profile Telemetry Cardiac consult in a.m. for further recommendations Close monitor /2 Trop 60--> 200s--> 300s chest pain free for Cardiac Cath today on Heparin IV, ASA, Cresto History of hyperlipidemia On Cresto DVT prophylaxis IV heparin Disposition lives at home with family Admission and Anticipated Discharge Date Admission Date: November 18, 2024 Subjective ff up for NSTEMI, etc seen resting in bed, comfortable in good spirits chest pain free since last night no dyspnea, palpitations, dyspnea no abdominal pain, nausea no other symptoms Review of Systems Review of Systems: all noted and negative except for above Physical Exam Physical Exam: General- oriented x 3, not in distress, speaks in sentences with no effort or accessory muscle use Eyes- anicteric Neck- no JVD Lungs- clear breath sounds bilaterally, no rales/wheezes Heart- normal rate, regular rhythm; no murmurs Abdomen- normal bowel sounds, nondistended, soft, nontender Extremities- no pretibial edema, no calf tenderness Neuro- alert, oriented x 3; no gross focal neurologic deficits Skin- warm & dry Results & Data Results & Data Vital Signs (Past 12 Hours) Vital Signs Temp Pulse Resp BP Pulse Ox O2 Del Method 11/19/24 10:54 36.6 C 61 18 125/63 96 Room Air 11/19/24 07:55 36.6 C 59 L 18 114/74 95 Room Air 11/19/24 03:20 36.6 C 58 L 20 119/69 96 Room Air all noted and reviewed including below
[2024-11-19] MEDS: NITROGLYCERIN/D5W 100MCG/ML 20ML SYR ONE (13:55)
[2024-11-19] MEDS: niCARdipine 2,000 MCG/20 ML SYR ONE (13:55)
[2024-11-19] MEDS: HEPARIN (PORCINE) 1000 UNIT/ML 10 ML (CATH LAB USE ONLY) ONE (13:55)
[2024-11-19] MEDS: MIDAZOLAM HCL 1 MG/ML 2ML VIAL ONE (13:56)
[2024-11-19] MEDS: fentaNYL citrate PF 100 MCG/2 ML VIAL ONE (13:56)
[2024-11-19] MEDS: OPTIRAY 350 ONE (14:06)
--- NOTE | 2024-11-19 14:10 | Post Anesthesia Assessment ---
Date of Service November 19, 2024 Post Sedation Assessment Vital Signs Temp Pulse Pulse Resp BP BP Pulse Ox 11/19/24 10:54 36.6 C 61 18 125/63 96 11/19/24 07:55 36.6 C 59 L 18 114/74 95 11/19/24 03:20 36.6 C 58 L 20 119/69 96 11/18/24 22:50 36.5 C 68 16 121/76 95 11/18/24 22:49 36.5 C 68 16 121/76 95 11/18/24 22:49 11/18/24 21:28 36.7 C 11/18/24 21:01 65 22 139/86 97 11/18/24 19:40 75 18 99 11/18/24 17:57 91 H 11/18/24 17:39 97 11/18/24 17:39 93 H 14 130/89 97 11/18/24 17:29 36.5 C 92 H 18 151/84 H 97 Pulse Ox O2 Del Method O2 Del Method 11/19/24 10:54 Room Air 11/19/24 07:55 Room Air 11/19/24 03:20 Room Air 11/18/24 22:50 Room Air 11/18/24 22:49 Room Air 11/18/24 22:49 95 Room Air 11/18/24 21:28 11/18/24 21:01 Room Air 11/18/24 19:40 Room Air 11/18/24 17:57 11/18/24 17:39 Room Air 11/18/24 17:39 Room Air 11/18/24 17:29 Room Air Recovery Score Activity: Moves 4 extremities Respiration: Deep Breath/Cough Circulation: +/-20% PreAnes Value Consciousness: Arouseable (by name) Oxygen Saturation: > 92% On Room Air Discharge Sedation Level of Care: Fast Track Phase II Post Sedation Plan On clinical assessment, the patient appears to have tolerated the sedation without complications. Patient is recovering as anticipated. Patient will continue to be monitored by nursing and may be discharged when sedation discharge criteria are met per below protocol. Upon Completions of procedure up to 15 minutes continue every 5 minute vital signs and the P.A.R. score; then discharge to a Phase I or Fast Track to Phase II per the following guidelines: * Discharge Patient to appropriate Phase II area if PAR is 8 or greater or return to pre- procedure baseline. The post - procedure orders will be as directed. * If PAR score is less than 8 or not return to pre-procedure baseline then patient will follow Phase I monitoring till PAR is reached for Phase II. The Phase I may be done in procedure room or may call to secure a Phase I area. * If naloxone or flumazenil are used for reversal, hold in Phase I for continued monitoring from when last reversal dose was given for a minimum of 60 minutes or longer pending the nurse and/or physician discretion of patient condition before discharge to Phase II. Please call the Sedation Physician to re-evaluate and complete post-note for discharge to Phase II area. Do NOT discharge from procedure sedation or Phase 1 until post- sedation evaluation note is complete by procedure /sedation MD Sedation Discharge Instructions to be given to the patient at discharge to home.
--- NOTE | 2024-11-19 14:29 | Cardiac Catheterization ---
Cardiac Cath Procedure Full Procedure Date November 19, 2024 Pre-Procedure Diagnosis Pre-Procedure Diagnosis: Non STEMI AUC Score AUC Score: 7 Post-Procedure Diagnosis Post-Procedure Diagnosis: Mild CAD and Normal Intracardiac Pressures Procedure(s) Performed Procedure(s) Performed: Coronary Angiography and Left Heart Cath Facilities Custodian Prakash Mckoy DO Mortgage Loan Processing Clerk(s) Jaden [employer] Estimated Blood Loss Estimated Blood Loss: 10cc Medication(s) Medication(s): Fentanyl, Heparin, Lidocaine 1%, Nicardipine, Nitroglycerin and Versed Summary of Findings Right dominant coronary anatomy. Small, type I LAD Mild nonobstructive coronary artery disease Hemodynamics Rest Ao:: 109/66 Final Ao: 115/65/88 LV: 114/5/12 Recommendations Recommendations: Medical Therapy and/or Counseling Radiation Exposure (mGy) 684 Contrast (mls) 50 Fluids (cc crystalloids) Fluids (cc crystalloids): 0 Drains Drains: N/A Anesthesia Moderate sedation. Start 1:31 PM, End 2:04 PM sedation monitor: John JOHNSON Procedural Complication(s) None Disposition Photographic Double Holding/Recovery I attest to the content of the Intraoperative Record and any orders documented therein. Any exceptions are noted below. ACC Data: Photographic Double Cardiac Status Clinical evaluation leading to the procedure 69-year-old female present to the emergency department with chest discomfort and palpitations while performing yard work. Symptoms lasted nearly 20 minutes and spontaneously resolved. She came to the ER and found to have elevated high- sensitivity troponin. CAD Presenation: Non STEMI STEMI OR Non-STEMI Symptom Onset Date: 11/18/24 Symptom Onset Time: 16:00 Thrombolytics: No Coronary Anatomy Dominant: Right Left Main (% Stenosis): Normal LAD (% Stenosis): Proximal (10%) and Mid (Small type I vessel with 30% mid stenosis at bifurcation of large diagonal branch) D1 (% Stenosis): Normal (Bifurcates proximally) D2 (% Stenosis): Proximal (20%) Circumflex (% Stenosis): Normal OM1 (% Stenosis): Mid (10%) OM2 (% Stenosis): Normal (Small vessel) OM3 (% Stenosis): Normal L PL1 (% Stenosis): Normal (small, 1mm vessel) RCA (% Stenosis): Proximal (20%) R PDA (% Stenosis): Normal R PL1 (% Stenosis): Normal R PL2 (% Stenosis): Normal Diagnostic Physicians Name: Prakash Mckoy DO Closure Device Percutaneous Entry Location: Radial Closure Device: Radial Band Recommendations: Medical Therapy and/or Counseling Intraprocedure Events Significant Disection: No Perforation: No
--- NOTE | 2024-11-19 14:48 | Communication Note ---
Date of Service: November 19, 2024 Cardiac catheterization demonstrating nonobstructive coronary disease. Recommend outpatient 14-day ZIO monitor and cardiology follow-up in 4 to 6 weeks. Continue low-dose aspirin, beta-elisa, and statin therapy. Patient may be discharged when radial band removed. Postcardiac catheterization activity restrictions noted below. ACTIVITY RECOMMENDATIONS: Excess manipulation of the wrist should be avoided for the next 24-48 hours. * No lifting over 2 pounds (approximately a 1/2 gallon of milk) with the utilized arm for 24 hours. * No strenuous activity such as bowling or tennis for 3 days. * Keep the site of the procedure covered with a bandage for 24 hours. *You may shower the day after the procedure. Do not take a tub bath or submerge the puncture site in water for the next 3 days. *Do not operate any motorized equipment for 3 days. SPECIAL CARE INSTRUCTIONS: The site may be slightly bruised and sore following your procedure. Should any of the following occur, contact the Dr. who performed your procedure. 1. Redness/inflammation, swelling, chills, or fever, or colored drainage at procedure site within 3-7 days after your procedure. 2. Coldness, discoloration, ongoing numbness, severe pain, or swelling. Expect mild tingling of hand and tenderness at the puncture site for up to three days. If this persists beyond three days, or other symptoms develop, notify the Dr. who performed your procedure. BLEEDING: If the procedure site on your wrist begins to bleed, do not panic 1. Place 1 or 2 fingers firmly just slightly above the insertion site to stop the bleeding. You may be able to feel your pulse as you hold pressure. 2. Lift your finger after 5 minutes to see if the bleeding has stopped. 3. Once the bleeding has stopped, gently wipe the wrist area clean with a bandage. * If the bleeding from your wrist does not stop after 10 minutes, or if there is a large amount of bleeding or spurting, call 911 (do not drive yourself to the hospital). SKIN IRRITATION: * You may experience some redness and/or swelling in the area where radiation was administered. If any skin irritation occurs, please contact your family physician. FOLLOW UP VISIT: Keep any scheduled doctor appointments.
--- NOTE | 2024-11-19 15:28 | Discharge Summary ---
Discharge Summary Date of Service November 19, 2024 Principal Dx & Hospital Course #1 = Principal Diagnosis (1) Chest pain: per previous hospitalist notes with addendum: 69-year-old female with past med history significant for hyperlipidemia comes with chest pain. Patient was working in the yard today when suddenly felt dizzy, chest pain and palpitations and was also short of breath. She was not feeling well. The chest pain lasted about 30 to 40 minutes. Currently has some mild soreness in the chest. Palpitations and shortness of breath currently resolved. During episode she also had a headache which is resolved. Had some chest discomfort in the past but not thought much about it. Denies any blurred vision. Has some runny nose and sore throat from allergies. Has occasional cough. Appetite is okay. No nausea. No abdominal pain. Normal bowel and bladder movements. Denies blood in stools or black stools. Denies hematuria. No rash. Currently resting comfortably and hemodynamically stable. Chest pain Non-ST elevated VT Presented with chest pain while working in the yard Currently has some soreness in the chest EKG no acute findings Initial troponin Initial troponin 69 and repeat is 238 Started on IV heparin Aspirin given Continue home Crestor / Trop 60--> 200s--> 300s chest pain free Status post Cardiac Cath todayBy Dr. Prakash Mckoy: Mild CAD, normal intracardiac pressures Cardiology recommendations: Aspirin 81 mg p.o. daily Metoprolol XL 25 mg p.o. daily Increase Crestor to 20 mg p.o. daily Zio patch monitor x 14 days Follow-up with cardiology clinic in 4 to 6 weeks History of hyperlipidemia Crestor increased to 20 mg p.o. daily Disposition Discharge to home PCP follow-up in 1 week [employer] follow-up in 4 to 6 weeks Notes For Next Care Provider Please set up Zio patch monitor x 14 days per cardiology service recommendation Medication Changes From Visit Aspirin 81 mg p.o. daily Metoprolol XL 25 mg p.o. daily Increase Crestor to 20 mg p.o. daily Admission HPI Per Admitting Provider 69-year-old female with past med history significant for hyperlipidemia comes with chest pain. Patient was working in the yard today when suddenly felt dizzy, chest pain and palpitations and was also short of breath. She was not feeling well. The chest pain lasted about 30 to 40 minutes. Currently has some mild soreness in the chest. Palpitations and shortness of breath currently reso lved. During episode she also had a headache which is resolved. Had some chest discomfort in the past but not thought much about it. Denies any blurred vision. Has some runny nose and sore throat from allergies. Has occasional cough. Appetite is okay. No nausea. No abdominal pain. Normal bowel and bladder movements. Denies blood in stools or black stools. Denies hematuria. No rash. Currently resting comfortably and hemodynamically stable. Past medical history. As mentioned above Past surgical history. Hysterectomy Social history. No smoking. No alcohol use. Family history. Mother had diabetes. Father hypertension. Liver cirrhosis. And heart disease. Admission Exam Per Admitting Provider General- Not in distress. Head- atraumatic Eyes- PERRL ENT- oropharynx clear Neck- supple, no JVD. Lungs- clear to auscultation no wheezing or crackles Heart- regular rate and rhythm; no murmur, no gallop. Abdomen- normal bowel sounds, soft, nontender, no distension Extremities- no pretibial edema, no erythema seen Neuro- alert, oriented PERRL, no facial palsy; no dysarthria; moves extremities Discharge Exam General- oriented x 3, not in distress, speaks in sentences with no effort or accessory muscle use Eyes- anicteric Neck- no JVD Lungs- clear breath sounds bilaterally, no rales/wheezes Heart- normal rate, regular rhythm; no murmurs Abdomen- normal bowel sounds, nondistended, soft, nontender Extremities- no pretibial edema, no calf tenderness Neuro- alert, oriented x 3; no gross focal neurologic deficits Skin- warm & dry Updated Medication List Medication Instructions Recorded Confirmed Type rosuvastatin 10 mg tablet 10 mg PO HS 11/18/24 11/18/24 History aspirin 81 mg tablet,delayed 81 mg PO QAM 30 days #30 tabs 11/19/24 Rx release metoprolol succinate 25 mg 25 mg PO QAM 30 days #30 tabs 11/19/24 Rx tablet,extended release 24 hr rosuvastatin 20 mg tablet 20 mg PO HS 30 days #30 tabs 11/19/24 Rx Hospital Stay Data Consultations 11/18/24 19:08 ED Decision to Admit Stat 11/19/24 08:00 Consult Cardiology Routine Procedures Performed Operation Date: 11/19/24 11:00 Actual Procedures p Cineradiography w/Routine Exam - Prakash Mckoy DO p Cath, Left with Cors and Vent - Prakash Mckoy DO Diagnostic Imagining Performed CXR Clinical History: Chest pain Technique: A frontal view of the chest was obtained Findings: There are no confluent pulmonary infiltrates. The heart size is within normal limits. No pleural effusion or pneumothorax is seen. There is no definite pulmonary nodule. There are suspected old healed right rib fractures Impression: No active disease Electronically signed by Yasir Buchanan 11-18-2024 7:08 PM 11/19/24 13:12 CL Cath Imgs for PACS use only Routine Pending Results Patient Have Any Pending Studies at Discharge: No Discharge Instructions Given to Patient (Per Discharging Provider) PLEASE REFER TO YOUR NEW MEDICATION LIST AND FOLLOW INSTRUCTIONS CAREFULLY. YOUR NEW MEDICATIONS INCLUDE: Aspirin, metoprolol-for prevention of heart attack -Always take aspirin with a full stomach to prevent stomach irritation or ulcers Increase Crestor to 20 mg p.o. daily You will need to have a central stores attendant or what is called a Zio patch placed for 14 days to rule out any abnormal heart rhythms. Your primary care physician can arrange for this. PLEASE CALL YOUR PRIMARY CARE PHYSICIAN OR RETURN TO THE ER IF WITH WORSENING OF SYMPTOMS, INCLUDING Chest pain, shortness of breath, palpitations, dizziness, etc. FOLLOW UP WITH PRIMARY CARE PHYSICIAN In 1 week OUTLINED ABOVE. Follow-up with apparel fashion designer Dr. Prakash Mckoy in 4-6 weeks. Contact information outlined above. Please contact his office to set up an appointment. Total Time Total Time Spent Total Time Spent (In Minutes): 45 minutes
[2024-11-19 15:53] VITALS: RESP 16; O2SAT 95
[2024-11-19] MEDS: METOPROLOL SUCC 25MG EXT REL TAB PO SCH (15:58)
[2024-11-19 16:44] VITALS: BP 119/74
[2024-11-19 18:56] VITALS: PULSE 69
[2024-11-19] MEDS ORDERED: ROSUVASTATIN CALCIUM 20 MG TAB PO SCH (21:00)
== END 2024-11-19 19:40 | disposition home or self-care (01) | DRG 282 ==
LOC: ED 17:27 → SUATTDRO 20:01 → INTOOBSV 20:01 → 4W 20:01